=== PATIENT | female | born 1970 | race Caucasian/White ===

== ENCOUNTER 2023-01-21 10:48 | Emergency (ER) | payer OTHER ==
[~2023-01-21] VITALS: Ht 167.6 cm; Wt 136.1 kg
[~2023-01-21 10:48] MED LIST: CITALOPRAM HBR40 MG; EXALGO16 MG; LEVOTHYROXINE200 MCG; LYRICA75 MG; MELOXICAM; OXYCODONE HCL15 MG; PREVACID
[2023-01-21 11:27] VITALS: O2SAT 98
[2023-01-21] MEDS ORDERED: ONDANSETRON ODT4 MG PO (11:46)
[2023-01-21] MEDS ORDERED: DICYCLOMINE HCL20 MG PO (11:48)
[2023-01-24] MEDS ORDERED: FAMOTIDINE20 MG PO (01:32)
[2023-01-24] MEDS ORDERED: AMLODIPINE BESY10 MG PO (01:32)
[2023-01-24] MEDS ORDERED: ASPIRIN81 MG PO (01:32)
[2023-01-24] MEDS ORDERED: BUMETANIDE0.5 MG PO (01:32)
[2023-01-24] MEDS ORDERED: TRAZODONE HCL100 MG PO (01:32)
[2023-01-24] MEDS ORDERED: METHOCARBAMOL750 MG PO (01:32)
[2023-01-24] MEDS ORDERED: METOPROLOL SUCC50 MG PO (01:32)
[2023-01-24] MEDS ORDERED: LOSARTAN POTAS100 MG PO (01:32)
[2023-01-24] MEDS ORDERED: GABAPENTIN400 MG PO (01:32)
[2023-01-24] MEDS ORDERED: CRESTOR10 MG PO (01:32)
[2023-01-24] MEDS ORDERED: LANSOPRAZOLE30 MG (01:32)
== END 2023-01-21 11:53 | disposition home or self-care (01) ==
LOC: ER 10:53
DX: R50.9 Fever, unspecified (principal); K52.9 Noninfective gastroenteritis and colitis, unspecified; R11.2 Nausea with vomiting, unspecified; I10 Essential (primary) hypertension; E03.9 Hypothyroidism, unspecified; I25.2 Old myocardial infarction; Z86.73 Personal history of transient ischemic attack (TIA), and cerebral infarction without residual deficits; F17.210 Nicotine dependence, cigarettes, uncomplicated
CPT/HCPCS: 99282

== ENCOUNTER → 2024-10-06 | Outpatient (REF) | payer OTHER ==
[~2024-10-06] MED LIST changes: +ACIDOPHILUS1 EAC1 PO; +AMLODIPINE BESY10 MG PO; +ASPIRIN81 MG PO; +BUMETANIDE0.5 MG PO; +CIPRO500 MG PO; +CRESTOR10 MG PO; +DICYCLOMINE HCL20 MG PO; +FAMOTIDINE20 MG PO; +GABAPENTIN400 MG PO; +LANSOPRAZOLE30 MG; +LOSARTAN POTAS100 MG PO; +METHOCARBAMOL750 MG PO; +METOPROLOL SUCC50 MG PO; +ONDANSETRON ODT4 MG PO; +TRAZODONE HCL100 MG PO
== END ==
LOC: RAD 11:33
PROVIDERS: ATTEND Internal Medicine Rheumatology
DX: M25.542 Pain in joints of left hand (principal); M25.541 Pain in joints of right hand; M25.572 Pain in left ankle and joints of left foot; M25.571 Pain in right ankle and joints of right foot; M53.3 Sacrococcygeal disorders, not elsewhere classified
CPT/HCPCS: 72202

== ENCOUNTER → 2024-10-06 | Outpatient (REF) | payer OTHER | LOC: RAD 10:53 | PROVIDERS: ATTEND Student in an Organized Health Care Education/Training Program | DX: M25.562 Pain in left knee (principal); M25.561 Pain in right knee ==

== ENCOUNTER → 2024-10-31 | Outpatient (REF) | payer OTHER | LOC: RAD 15:11 | PROVIDERS: ATTEND Internal Medicine Rheumatology | DX: M79.605 Pain in left leg (principal); M79.604 Pain in right leg ==